=== PATIENT | female | born 1985 | race Caucasian/White ===

== ENCOUNTER 2016-08-04 21:33 | Emergency (ER) | payer OTHER ==
[~2016-08-04 21:33] MED LIST: ACETAMINOPHEN PO; ALBUTEROL17 GM INH; ANTI-FUNGAL15 GM TP; ATARAX PO; DICLOFENAC PO; DOXYCYCLINE PO; FLEXERIL10 MG PO; KEFLEX PO; KEFLEX500 M1 PO; ORUDIS75 M1 PO; PEN-VEE K PO; PHENERGAN25 MG PO; PREDNISONE PO; TAMIFLU75 MG PO; TRIAMCINOLONE A15 G6 EXT
== END 2016-08-05 00:30 | disposition left against medical advice (07) ==
LOC: CFTX 21:33 → CED 21:33 → CFTX 23:10
DX: Z53.21 Procedure and treatment not carried out due to patient leaving prior to being seen by health care provider (principal)